=== PATIENT | male | born 1940 | race Caucasian/White ===

== ENCOUNTER 2017-03-16 11:23 | Emergency (ER) | payer MEDICARE ==
[2017-03-16 13:03] LABS: Hematocrit 45 % (42-52); Hemoglobin 15.2 g/dl (14.0-18.0); Mean Corpuscular HGB Conc 34 g/dl (31-36); Mean Corpuscular Hemoglobin 32 pg (27-31); Mean Corpuscular Volume 94 fL (80-94); Mean Platelet Volume 9 um3 (7.4-10.4); Red Blood Count 4.82 10^6/ul (4.0-5.4); Red Cell Distribution Width 13 % (10.5-15); White Blood Count 8.5 10^3/ul (3.5-10.8)
[2017-03-16 13:15] LABS: ALT 33 U/L (7-52); Albumin 4.5 g/dL (3.2-5.2); Alkaline Phosphatase 85 U/L (34-104); BUN/Creatinine Ratio 24.7 (8-20); Blood Urea Nitrogen 23 mg/dL (6-24); CO2 Carbon Dioxide 24 mmol/L (22-32); Calcium 9.5 mg/dL (8.6-10.3); Chloride 103 mmol/L (101-111); EGFR African American 101.1 (>60); EGFR Non-African American 78.6 (>60); Globulin 2.7 g/dL (2-4); Glucose 115 mg/dL (70-100); Sodium 134 mmol/L (133-145); Total Protein 7.2 g/dL (6.4-8.9)
[2017-03-16 13:16] LABS: Troponin I 0.03 ng/mL (<0.04)
[2017-03-16 13:29] LABS: TSH (Thyroid Stimulating Horm) 2.08 mcIU/mL (0.34-5.60)
--- NOTE | 2017-03-16 13:32 | RAD ---
Indication: Chest pain yesterday. Comparison: June 01, 2009 Technique: Upright AP 1300 hours Report: No focal pulmonary lesion, compelling alveolar consolidation, pleural effusion, pneumothorax. Negative for cardiomegaly. Prominent convex LEFT heart margin may reflect LEFT ventricular hypertrophy. Unremarkable central pulmonary vasculature. Mildly tortuous descending thoracic aorta. IMPRESSION: No acute cardiopulmonary process evident.
[2017-03-16 14:25] LABS: Anion Gap 7 mmol/L (2-11)
[2017-03-16 15:51] LABS: Troponin I 0.03 ng/mL (<0.04)
[2017-03-16 15:59] LABS: Magnesium 2.2 mg/dL (1.9-2.7)
[2017-03-16 16:23] VITALS: BP 139/73
--- NOTE | 2017-03-16 17:40 | ED ---
Pako Brown Thomas, scribed for Elan Milan MD on 03/16/17 at 1246 . HPI Chest Pain - HPI Summary HPI Summary: The pt is a 76 y/o M presenting to the ED c/o upper sternal CP that began yesterday but has since resoled. He also complains of elevated BP since two days ago. Last night, his diastolic BP was measured at 102. He called his PCP, who advised him to raise his dose of Lisinopril from 10 mg to 20 mg. This raised dosage did not lower his BP. Last night, his CP was so severe that he took 4 ASA. Pt additionally c/o SOB (chronic). Pt denies any CP in the ED. The SOB was not concurrent with the CP. 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 PSHx: tonsillectomy, hernia repair, back surgery, carpal tunnel. SHx: weekly alcohol, no illicit drugs, former smoker. - History of Current Complaint Chief Complaint: EDChestPainROMI Time Seen by Provider: 03/16/17 12:20 Hx Obtained From: Patient, Family/Meatman - present Onset/Duration: Started Days Ago - CP was yesterday but resolved in the ED, Resolved Timing: Intermittent Current Severity: Moderate Pain Intensity: 0 Pain Scale Used: 0-10 Numeric Aggravating Factor(s): Nothing Alleviating Factor(s): Nothing Associated Signs and Symptoms: Positive: Shortness of Breath - chronic, not concurrent with CP, Other: - POS: elevated diastolic (over 100 and unchanged by doubling dosage of Lisinopril). Negative: Chest Pain - none in the ED but some yesterday - Allergy/Home Medications Allergies/Adverse Reactions: Allergies Allergy/AdvReac Type Severity Reaction Status Date / Time Adhesive Tape Allergy Rash Verified 03/16/17 11:29 Home Medications: Home Medications Atorvastatin* [Lipitor*] 40 mg PO DAILY 03/16/17 [History Confirmed 03/16/17] Diclofenac Sodium EC TAB* [Voltaren EC TAB*] 75 mg PO BID 03/16/17 [History Confirmed 03/16/17] HYDROcodone/ACETAMIN 5-325 MG* [Latta 5-325 TAB*] 1 tab PO Q6H PRN 03/16/17 [ History Confirmed 03/16/17] Lisinopril TAB* [Prinivil TAB*] 10 mg PO DAILY 03/16/17 [History Confirmed 03/16] [place]-3 Fatty Acids [[place] 3] 1 cap PO DAILY 03/16/17 [History Confirmed ] Omeprazole CAP* [Prilosec CAP* 20 MG] 40 mg PO DAILY 03/16/17 [History Confirmed 03/16/17] PMH/Surg Hx/FS Hx/Imm Hx Previously Healthy: No Cardiovascular History: Reports: Hx Hypertension - HX OF - IMPROVED WITH WEIGHT LOSS- NO MEDICATION FOR NOW Denies: Hx Pacemaker/ICD GI History: Reports: Hx Hiatal Hernia - HX OF IN THE PAST History: Reports: Hx Kidney Stones - ??- POSSIBLE- HAD RIGHT LOWER QUAD PAIN ON 03/08/15- PAIN FOR 2 HOURS THEN N Musculoskeletal History: Reports: Hx Arthritis - HIPS AND KNEES, BACK, Other Musculoskeletal History - SPINAL STENSIS Sensory History: Reports: Hx Cataracts - RIGHT, Hx Contacts or Glasses - READING , Hx Hearing Aid - BILAT Opthamlomology History: Reports: Hx Cataracts - RIGHT, Hx Contacts or Glasses - READING Psychiatric History: Reports: Hx Panic Disorder - Surgical History Surgery Procedure, Year, and Place: ARTHROSCOPIC RIGHT KNEE - LATE . HERNIA REPAIR - 1963 (CAN NOT CONFIRM MESH TO 1.5T ONLY PER DONNA). PENILE IMPLANT 2000 & REPAIR [address] [facility] [place] PER OP REPORT IMPLANT IS A AMBICOR INFLATABLE PENILE PROSTHESIS - REFERENCE MANUAL FOR MR SAFETY, IMPLANTS AND DEVICES - SHELLOCK- SAFE 1.5T AND 3T . ARTHROSCOPIC LUMBAR BACK SURGERY - 2009 [facility] Hx Anesthesia Reactions: No Infectious Disease History: No Infectious Disease History: Denies: Traveled Outside the [place] in Last 30 Days - Family History Known Family History: Positive: Diabetes, Other - POS: brain aneurysms - Social History Alcohol Use: Weekly Alcohol Amount: 1 WEEK/DAY Substance Use Type: Reports: None Smoking Status (MU): Former Smoker Amount Used/How Often: 7-8 CIGARS PER DAY X 8 YEARS/ CHEWED X 40 YEARS Have You Smoked in the Last Year: No Review of Systems Negative: Fever Positive: Other - POS: diastolic over 100 (yesterday) and unchanged with doubling dosage of Lisinopril. Negative: Chest Pain - CP yesterday but none in the ED Positive: Shortness Of Breath - chronic All Other Systems Reviewed And Are Negative: Yes Physical Exam Triage Information Reviewed: Yes Vital Signs On Initial Exam: Initial Vitals Temp Pulse Resp BP Pulse Ox 97.8 F 90 20 167/91 95 03/16/17 11:29 03/16/17 11:29 03/16/17 11:29 03/16/17 11:29 03/16/17 11:29 Vital Signs Reviewed: Yes Appearance: Positive: Well-Appearing, No Pain Distress Skin: Positive: Warm, Skin Color Reflects Adequate Perfusion, Dry Head/Face: Positive: Normal Head/Face Inspection Eyes: Positive: Normal ENT: Positive: Normal ENT inspection Neck: Positive: Supple, Nontender Respiratory/Lung Sounds: Positive: Clear to Auscultation, Breath Sounds Present Cardiovascular: Positive: RRR Abdomen Description: Positive: Nontender, Soft Bowel Sounds: Positive: Present Musculoskeletal: Positive: Normal Neurological: Positive: Normal Psychiatric: Positive: Normal, Affect/Mood Appropriate - Shy Coma Scale Coma Scale Total: 15 Diagnostics - Vital Signs Vital Signs Temp Pulse Resp BP Pulse Ox 03/16/17 11:55 98.1 F 81 20 157/87 94 03/16/17 11:29 97.8 F 90 20 167/91 95 - Laboratory Lab Results: Lab Results 03/16/17 03/16/17 03/16/17 Range/Units 11:50 11:50 11:50 WBC 8.5 (3.5-10.8) 10^3/ul RBC 4.82 (4.0-5.4) 10^6/ul Hgb 15.2 (14.0-18.0) g/dl Hct 45 (42-52) % MCV 94 (80-94) fL MCH 32 H (27-31) pg MCHC 34 (31-36) g/dl RDW 13 (10.5-15) % Plt Count 212 (150-450) 10^3/ul MPV 9 (7.4-10.4) um3 Neut % (Auto) 69.5 (38-83) % Lymph % (Auto) 22.1 L (25-47) % [place] % (Auto) 5.9 (1-9) % Eos % (Auto) 1.9 (0-6) % Baso % (Auto) 0.6 (0-2) % Absolute Neuts (auto) 5.9 (1.5-7.7) 10^3/ul Absolute Lymphs (auto) 1.9 (1.0-4.8) 10^3/ul Absolute Monos (auto) 0.5 (0-0.8) 10^3/ul Absolute Eos (auto) 0.2 (0-0.6) 10^3/ul Absolute Basos (auto) 0 (0-0.2) 10^3/ul Absolute Nucleated RBC 0.01 10^3/ul Nucleated RBC % 0.1 INR (Anticoag Therapy) 0.84 L (0.89-1.11) Sodium 134 (133-145) mmol/L Potassium TNP Chloride 103 (101-111) mmol/L Carbon Dioxide 24 (22-32) mmol/L Anion Gap 7 (2-11) mmol/L BUN 23 (6-24) mg/dL Creatinine 0.93 (0.67-1.17) mg/dL Est GFR ( Amer) 101.1 (>60) Est GFR (Non-Af Amer) 78.6 (>60) BUN/Creatinine Ratio 24.7 H (8-20) Glucose 115 H (70-100) mg/dL Lactic Acid (0.5-2.0) mmol/L Calcium 9.5 (8.6-10.3) mg/dL Magnesium TNP Total Bilirubin 0.80 (0.2-1.0) mg/dL AST TNP ALT 33 (7-52) U/L Alkaline Phosphatase 85 (34-104) U/L Troponin I 0.03 (<0.04) ng/mL Total Protein 7.2 (6.4-8.9) g/dL Albumin 4.5 (3.2-5.2) g/dL Globulin 2.7 (2-4) g/dL Albumin/Globulin Ratio 1.7 (1-3) TSH 2.08 (0.34-5.60) mcIU/mL 03/16/17 03/16/17 Range/Units 11:50 15:25 WBC (3.5-10.8) 10^3/ul RBC (4.0-5.4) 10^6/ul Hgb (14.0-18.0) g/dl Hct (42-52) % MCV (80-94) fL MCH (27-31) pg MCHC (31-36) g/dl RDW (10.5-15) % Plt Count (150-450) 10^3/ul MPV (7.4-10.4) um3 Neut % (Auto) (38-83) % Lymph % (Auto) (25-47) % [place] % (Auto) (1-9) % Eos % (Auto) (0-6) % Baso % (Auto) (0-2) % Absolute Neuts (auto) (1.5-7.7) 10^3/ul Absolute Lymphs (auto) (1.0-4.8) 10^3/ul Absolute Monos (auto) (0-0.8) 10^3/ul Absolute Eos (auto) (0-0.6) 10^3/ul Absolute Basos (auto) (0-0.2) 10^3/ul Absolute Nucleated RBC 10^3/ul Nucleated RBC % INR (Anticoag Therapy) (0.89-1.11) Sodium (133-145) mmol/L Potassium 4.1 Chloride (101-111) mmol/L Carbon Dioxide (22-32) mmol/L Anion Gap (2-11) mmol/L BUN (6-24) mg/dL Creatinine (0.67-1.17) mg/dL Est GFR ( Amer) (>60) Est GFR (Non-Af Amer) (>60) BUN/Creatinine Ratio (8-20) Glucose (70-100) mg/dL Lactic Acid 1.7 (0.5-2.0) mmol/L Calcium (8.6-10.3) mg/dL Magnesium 2.2 Total Bilirubin (0.2-1.0) mg/dL AST 23 ALT (7-52) U/L Alkaline Phosphatase (34-104) U/L Troponin I 0.03 (<0.04) ng/mL Total Protein (6.4-8.9) g/dL Albumin (3.2-5.2) g/dL Globulin (2-4) g/dL Albumin/Globulin Ratio (1-3) TSH (0.34-5.60) mcIU/mL Result Diagrams: 03/16/17 11:50 03/16/17 15:25 Lab Statement: Any lab studies that have been ordered have been reviewed, and results considered in the medical decision making process. - Radiology CXR Xray Interpretation: No Acute Changes - no acute cardiopulmonary process evident Radiology Interpretation Completed By: Radiologist - EKG 11:33 Cardiac Rate: NL - 82 BPM EKG Interpretation: Normal sinus. RBBB. Re-Evaluation - Re-Evaluation First Eval Re-Evaluation Time: 16:04 Change: Unchanged Chest Pain Course/Dx - Course Course Of Treatment: Mr. Klein presented with a concern for some CP that he had yesterday in the context of his BP's running high. He talked to his PMD and was advised to double his Lisinopril which he did. His BP was reportedly high at home. It was fine here when taken by both our cuff and their home cuff. His W/U was negative for any acute problem and he was D/C'd to F/U with Dr. Marquez. - Diagnoses Provider Diagnoses: Chest pain Discharge - Discharge Plan Condition: Stable Disposition: HOME Patient Education Materials: Chest Pain (ED) Referrals: Darien Marquez MD [Primary Care Provider] - 3 Days Additional Instructions: Follow up with your doctor. The documentation as recorded by the Pako abdul Thomas accurately reflects the service I personally performed and the decisions made by , Elan Milan MD.
== END 2017-03-16 16:23 | disposition home or self-care (01) ==
LOC: ED 11:23
DX: R07.9 Chest pain, unspecified (principal); R06.02 Shortness of breath
CPT/HCPCS: 36415; 71010; 80053; 83605; 83735; 84443; 84484; 85025; 85610; 93005; 99283